=== PATIENT | female | born 1940 | race Caucasian/White ===

== ENCOUNTER → 2017-01-12 | Outpatient (CLI) | payer OTHER, MEDICARE | LOC: FIMAGING 10:05 | PROVIDERS: ATTEND Internal Medicine | DX: Z12.39 Encounter for other screening for malignant neoplasm of breast (principal); N63 Unspecified lump in breast | CPT/HCPCS: 76641; G0204 ==

== ENCOUNTER → 2017-03-21 | Outpatient (CLI) | payer OTHER, MEDICARE | LOC: BHFA 15:30 | PROVIDERS: ATTEND Internal Medicine Cardiovascular Disease | DX: I27.2 Other secondary pulmonary hypertension (principal) ==

== ENCOUNTER → 2018-01-16 | Outpatient (CLI) | payer OTHER, MEDICARE | LOC: FIMAGING 10:04 | PROVIDERS: ATTEND Internal Medicine | DX: Z12.31 Encounter for screening mammogram for malignant neoplasm of breast (principal) ==

== ENCOUNTER 2018-08-20 13:26 | Emergency (ER) | payer OTHER, MEDICARE ==
--- NOTE | 2018-08-20 14:39 | EDPHY ---
H & P Stated Complaint: difficulty urinating, SOB, cough Time Seen by Provider: 08/20/18 13:57 HPI/ROS: CHIEF COMPLAINT: Persistent cough HISTORY OF PRESENT ILLNESS: 78-year-old female with asthma presents with a persistent cough. 3 year history of persistent cough, recently worsened. She was on prednisone 5 mg daily until 2 days ago, when her prednisone dosing was increased to 40 mg twice a day. This morning, she developed itchiness of her upper arms, without rash. She was concerned that this might be related to a new prednisone allergy. The cough is now productive of yellowish phlegm, she is concerned that she might have pneumonia. No fever or chills. Last night she had an episode of difficulty urinating. Urinating without problem today. REVIEW OF SYSTEMS: complete 10 point ROS reviewed and is negative except for the noted elements in the HPI - Personal History Current Tetanus/Diphtheria Vaccine: Yes Current Tetanus Diphtheria and Acellular Pertussis (TDAP): Yes - Medical/Surgical History Hx Asthma: No Hx Chronic Respiratory Disease: Yes Hx Diabetes: No Hx Cardiac Disease: Yes Hx Renal Disease: No Hx Cirrhosis: No Hx Alcoholism: No Hx HIV/AIDS: No Hx Splenectomy or Spleen Trauma: No Other PMH: dyastolic disfunction - Social History Smoking Status: Never smoked Alcohol Use: Sober Additional Social History: - Physical Exam Exam: General Appearance: Alert, pleasant, nontoxic Eyes: Pupils equal and round, no conjunctival pallor or injection ENT, Mouth: Mucous membranes moist Neck: Normal inspection Respiratory: Lungs are clear to auscultation Cardiovascular: Regular rate and rhythm Gastrointestinal: Abdomen is soft and nontender Neurological: A&O, nonfocal, normal gait Skin: Warm and dry, no rash Extremities: No tenderness or swelling Psychiatric: Mood and affect normal Constitutional: Initial Vital Signs Temperature (C) 36.5 C 08/20/18 13:33 Heart Rate 81 08/20/18 13:33 Respiratory Rate 16 08/20/18 13:33 Blood Pressure 184/94 H 08/20/18 13:33 O2 Sat (%) 95 08/20/18 13:33 O2 Delivery Mode Room Air Allergies/Adverse Reactions: latex Allergy (Unknown, Verified 08/20/18 13:32) triamcinolone Allergy (Unknown, Verified 08/20/18 13:32) acetaminophen [From Ultracet] Allergy (Verified 08/20/18 13:32) Vomiting alosetron HCl [From Lotronex] Allergy (Verified 08/20/18 13:32) cramping amitriptyline [Amitriptyline] Allergy (Verified 08/20/18 13:32) spacey/sleep disturbance amoxicillin [Amoxicillin] Allergy (Verified 08/20/18 13:32) cough, chest tightness azithromycin [From Zithromax] Allergy (Verified 08/20/18 13:32) Itching cefaclor [From Ceclor] Allergy (Verified 08/20/18 13:32) cough, chest tightness celecoxib [From Celebrex] Allergy (Verified 08/20/18 13:32) stomach burning chlorpheniramine polistirex [From Tussionex] Allergy (Verified 08/20/18 13:32) lau all night cyclobenzaprine [Cyclobenzaprine] Allergy (Verified 08/20/18 13:32) dizzy cyclobenzaprine HCl [From Flexeril] Allergy (Verified 08/20/18 13:32) dopey, pain, anxiety, disoriented fexofenadine HCl [From Kaylin] Allergy (Verified 08/20/18 13:32) Hives fluconazole Allergy (Verified 08/20/18 13:32) throat swelling, sob gabapentin [From Neurontin] Allergy (Verified 08/20/18 13:32) mood destabilization over time hydrocodone polistirex [From Tussionex] Allergy (Verified 08/20/18 13:32) lau all night imipramine HCl [From Tofranil] Allergy (Verified 08/20/18 13:32) tongue swelling, lau iodine Allergy (Verified 08/20/18 13:32) lost consciousness levofloxacin [Levofloxacin] Allergy (Verified 08/20/18 13:32) sleep disturbance, joint pain, fatigue, diarrhea metaxalone [From Skelaxin] Allergy (Verified 08/20/18 13:32) morphine Allergy (Verified 08/20/18 13:32) lau naproxen [From Naprosyn] Allergy (Verified 08/20/18 13:32) stomach burning ofloxacin [From Floxin] Allergy (Verified 08/20/18 13:32) cough, tight chest oxycodone HCl [From OxyContin] Allergy (Verified 08/20/18 13:32) hallucinations, n/v quetiapine fumarate [From Seroquel] Allergy (Verified 08/20/18 13:32) mood destabilization after 1 month, burning in legs ranitidine HCl [From Zantac] Allergy (Verified 08/20/18 13:32) lau after a month's use rofecoxib [From Vioxx] Allergy (Verified 08/20/18 13:32) stomach burning tramadol HCl [From Ultracet] Allergy (Verified 08/20/18 13:32) Vomiting trazodone Allergy (Verified 08/20/18 13:32) cramping, loss of motor skills valdecoxib [From Bextra] Allergy (Verified 08/20/18 13:32) stomach burning zaleplon [From Sonata] Allergy (Verified 08/20/18 13:32) Lau all night zolpidem [Zolpidem] Allergy (Verified 08/20/18 13:32) "wired me the next day each time I tried it" zolpidem tartrate [From Ambien] Allergy (Verified 08/20/18 13:32) dizzy zonisamide [From Zonegran] Allergy (Verified 08/20/18 13:32) severe lau cats Allergy (Unknown, Uncoded 08/20/18 13:32) Home Medications: Medication Instructions Recorded Miscellaneous Medical Supply [NO 1 ea [facility] [place] MEDS] Albuterol 08/20/18 Nasacort 08/20/18 Omeprazole 08/20/18 Pyridium 08/20/18 predniSONE 08/20/18 Medical Decision Making - Diagnostics EKG Interpretation: EKG interpreted by me reveals normal sinus rhythm, rate 71, left atrial enlargement, no ST or T segment changes. Interpretation: Abnormal EKG Imaging Results: Imaging Impressions Chest X-Ray 08/20/18 13:57 Impression: Mild cardiomegaly without pulmonary edema and probable airways disease Chest x-ray independently reviewed by me reveals no acute disease. Imaging: I viewed and interpreted images myself ED Course/Re-evaluation: This patient presents with an ongoing cough and asthma exacerbation. Vital signs are normal, including oxygen saturation. Chest x-ray reveals no evidence of pneumonia. Normal white blood cell count, and the patient is afebrile; there is no evidence of pneumonia. Will hold antibiotics for now, especially given her multiple allergies. Patient was strongly encouraged to follow up with Dr. Donnelly in the office. Warning signs discussed. - Data Points Laboratory Results: Laboratory Results 08/20/18 14:35 08/20/18 14:35 08/20/18 08/20/18 08/20/18 14:53 14:35 14:35 WBC RBC Hgb Hct MCV MCH MCHC RDW Plt Count MPV Neut % (Auto) Lymph % (Auto) [place] % (Auto) Eos % (Auto) Baso % (Auto) Nucleat RBC Rel Count Absolute Neuts (auto) Absolute Lymphs (auto) Absolute Monos (auto) Absolute Eos (auto) Absolute Basos (auto) Absolute Nucleated RBC Immature Gran % Immature Gran # D-Dimer < 0.27 ug/mLFEU ug/mLFEU (0.00-0.50) Sodium 136 mEq/L mEq/L (135-145) Potassium 4.2 mEq/L mEq/L (3.3-5.0) Chloride 100 mEq/L mEq/L (97-110) Carbon Dioxide 26 mEq/l mEq/l (22-31) Anion Gap 10 mEq/L mEq/L (6-14) BUN 16 mg/dL mg/dL (7-23) Creatinine 1.0 mg/dL mg/dL (0.6-1.0) Estimated GFR 54 Glucose 111 mg/dL H mg/dL (70-100) Calcium 9.8 mg/dL mg/dL (8.5-10.4) POC Troponin I 0.00 ng/mL ng/mL (0.00-0.08) Troponin I < 0.012 ng/mL ng/mL (0.000-0.034) NT-Pro-B Natriuret Pep 124 pg/mL pg/mL (0-450) Urine Color Urine Appearance Urine pH Ur Specific [place] Urine Protein Urine Ketones Urine Blood Urine Nitrate Urine Bilirubin Urine Urobilinogen Ur Leukocyte Esterase Urine RBC Urine WBC Ur Epithelial Cells Urine Bacteria Urine Glucose 08/20/18 08/20/18 14:35 13:45 WBC 8.61 10^3/uL 10^3/uL (3.80-9.50) RBC 4.41 10^6/uL 10^6/uL (4.18-5.33) Hgb 14.3 g/dL g/dL (12.6-16.3) Hct 42.1 % % (38.0-47.0) MCV 95.5 fL fL (81.5-99.8) MCH 32.4 pg pg (27.9-34.1) MCHC 34.0 g/dL g/dL (32.4-36.7) RDW 12.9 % % (11.5-15.2) Plt Count 276 10^3/uL 10^3/uL (150-400) MPV 9.9 fL fL (8.7-11.7) Neut % (Auto) 84.3 % H % (39.3-74.2) Lymph % (Auto) 9.5 % L % (15.0-45.0) [place] % (Auto) 5.5 % % (4.5-13.0) Eos % (Auto) 0.0 % L % (0.6-7.6) Baso % (Auto) 0.1 % L % (0.3-1.7) Nucleat RBC Rel Count 0.0 % % (0.0-0.2) Absolute Neuts (auto) 7.26 10^3/uL H 10^3/uL (1.70-6.50) Absolute Lymphs (auto) 0.82 10^3/uL L 10^3/uL (1.00-3.00) Absolute Monos (auto) 0.47 10^3/uL 10^3/uL (0.30-0.80) Absolute Eos (auto) 0.00 10^3/uL L 10^3/uL (0.03-0.40) Absolute Basos (auto) 0.01 10^3/uL L 10^3/uL (0.02-0.10) Absolute Nucleated RBC 0.00 10^3/uL 10^3/uL (0-0.01) Immature Gran % 0.6 % % (0.0-1.1) Immature Gran # 0.05 10^3/uL 10^3/uL (0.00-0.10) D-Dimer Sodium Potassium Chloride Carbon Dioxide Anion Gap BUN Creatinine Estimated GFR Glucose Calcium POC Troponin I Troponin I NT-Pro-B Natriuret Pep Urine Color TONY Urine Appearance CLEAR Urine pH 6.0 (5.0-7.5) Ur Specific [place] 1.002 (1.002-1.030) Urine Protein NEGATIVE (NEGATIVE) Urine Ketones NEGATIVE (NEGATIVE) Urine Blood 1+ H (NEGATIVE) Urine Nitrate POSITIVE H (NEGATIVE) Urine Bilirubin NEGATIVE (NEGATIVE) Urine Urobilinogen NEGATIVE EU EU (0.2-1.0) Ur Leukocyte Esterase NEGATIVE (NEGATIVE) Urine RBC NONE SEEN /hpf /hpf (0-3) Urine WBC 0-1 /hpf /hpf (0-3) Ur Epithelial Cells TRACE /lpf /lpf (NONE-1+) Urine Bacteria TRACE /hpf H /hpf (NONE SEEN) Urine Glucose NEGATIVE (NEGATIVE) Point of Care Test Results: Chemistry 08/20/18 14:53 POC Troponin I 0.00 ng/mL ng/mL (0.00-0.08) Departure - Departure Disposition: Home, Routine, Self-Care Clinical Impression: Chronic bronchitis Qualifiers: Chronic bronchitis type: mixed simple and mucopurulent Qualified Code(s): J41.8 - Mixed simple and mucopurulent chronic bronchitis Condition: Good Instructions: Chronic Bronchitis (ED) Additional Instructions: Continue your prednisone and nebulized breathing treatments as directed. Return for worsening symptoms or any concerns. Referrals: Mireya Donnelly MD [Primary Care Provider] - As per Instructions (Call to make an appointment.)
[2018-08-20 14:48] LABS: PLATELET COUNT 276 10^3/uL (150-400)
[2018-08-20 15:18] VITALS: BP 133/71
--- NOTE | 2018-08-20 20:53 | CPEKG ---
Test Reason : OPEN Blood Pressure : / mmHG Vent. Rate : 071 BPM Atrial Rate : 070 BPM P-R Int : 175 ms QRS Dur : 103 ms QT Int : 400 ms P-R-T Axes : 058 002 012 degrees QTc Int : 435 ms Sinus rhythm LAE, consider biatrial enlargement Confirmed by Olivia Jenkins ([id number]) on 08/20/2018 8:53:03 PM Referred By: Confirmed By:Olivia Jenkins
== END 2018-08-20 15:46 | disposition home or self-care (01) ==
DX: J41.8 Mixed simple and mucopurulent chronic bronchitis (principal); I51.7 Cardiomegaly
CPT/HCPCS: 84484-PO

== ENCOUNTER → 2018-10-19 | Outpatient (CLI) | payer OTHER, MEDICARE | LOC: BHFA 09:15 | PROVIDERS: ATTEND Internal Medicine Cardiovascular Disease | DX: R06.02 Shortness of breath (principal) ==

== ENCOUNTER → 2019-02-22 | Outpatient (CLI) | payer OTHER, MEDICARE | LOC: FIMAGING 07:58 | PROVIDERS: ATTEND Urology | DX: N28.89 Other specified disorders of kidney and ureter (principal) ==

== ENCOUNTER → 2019-02-26 | Outpatient (CLI) | payer OTHER, MEDICARE | LOC: FIMAGING 11:38 | PROVIDERS: ATTEND Internal Medicine | DX: Z12.31 Encounter for screening mammogram for malignant neoplasm of breast (principal) ==